=== PATIENT | female | born 1960 | race Native Hawaiian/Other Pacific Islander ===

== ENCOUNTER 2018-01-16 08:34 | Outpatient (CLI) | payer OTHER | END 2018-01-16 19:35 | disposition home or self-care (01) | LOC: RAD 08:34 | DX: M54.89 Other dorsalgia (principal); M54.2 Cervicalgia ==

== ENCOUNTER 2020-03-06 12:36 | Emergency (ER) | payer OTHER ==
[~2020-03-06] VITALS: Ht 162.6 cm; Wt 61.2 kg
[2020-03-06 12:40] VITALS: BP 133/72; TEMP 98.4
== END 2020-03-06 14:42 | disposition home or self-care (01) ==
LOC: ED 12:36
PROC: 2W3JX1Z Immobilization of Right Finger using Splint (ICD-10-PCS; principal; 2020-03-06)
DX: S62.646A Nondisplaced fracture of proximal phalanx of right little finger, initial encounter for closed fracture (principal); W01.0XXA Fall on same level from slipping, tripping and stumbling without subsequent striking against object, initial encounter; Y92.89 Other specified places as the place of occurrence of the external cause
CPT/HCPCS: 99283

== ENCOUNTER 2021-05-03 12:29 | Emergency (ER) | payer OTHER ==
[~2021-05-03] VITALS: Ht 162.6 cm; Wt 57.2 kg
[2021-05-03 13:10] LABS: PLATELET COUNT 256 K/uL (152-353)
[2021-05-03 13:18] LABS: POTASSIUM 4.6 mmol/L (3.6-5.2)
[2021-05-03 15:47] VITALS: BP 120/66; TEMP 98.6
== END 2021-05-03 15:47 | disposition home or self-care (01) ==
LOC: ED 12:29
PROVIDERS: Emergency Medicine
DX: R10.84 Generalized abdominal pain (principal); B96.81 Helicobacter pylori [H. pylori] as the cause of diseases classified elsewhere
CPT/HCPCS: 80053; 82150; 83690; 85027; 96374; 96375; 99284; J1170; J2405; Q9963

== ENCOUNTER 2021-08-21 08:30 | Outpatient (CLI) | payer OTHER | END 2021-08-21 18:51 | disposition home or self-care (01) | LOC: US 08:30 | PROVIDERS: ATTEND Nurse Practitioner Family | DX: R74.8 Abnormal levels of other serum enzymes (principal) ==

== ENCOUNTER 2022-01-28 08:21 | Emergency (ER) | payer OTHER ==
[~2022-01-28] VITALS: Ht 162.6 cm; Wt 57.2 kg
[2022-01-28 09:32] LABS: PLATELET COUNT 184 K/uL (152-353)
[2022-01-28 11:43] VITALS: BP 139/67; TEMP 99
== END 2022-01-28 11:45 | disposition home or self-care (01) ==
LOC: ED 08:21
PROVIDERS: Emergency Medicine Emergency Medical Services
DX: E86.0 Dehydration (principal); M51.37 Other intervertebral disc degeneration, lumbosacral region
CPT/HCPCS: 80053; 80307; 81002; 85027; 96361; 96374; 96375; 99284; J1885; J2405

== ENCOUNTER 2022-08-22 12:19 | Outpatient (CLI) | payer OTHER | END 2022-08-22 17:00 | disposition home or self-care (01) | LOC: LABW 12:19 | PROVIDERS: ATTEND Nurse Practitioner Family | DX: R19.5 Other fecal abnormalities (principal) | CPT/HCPCS: 83630; 83993; 87015; 87045; 87324; 87328; 87329; 87449; 87899 ==

== ENCOUNTER 2022-11-04 09:05 | Outpatient (CLI) | payer OTHER | END 2022-11-04 19:26 | disposition home or self-care (01) | LOC: US 09:05 | PROVIDERS: ATTEND Nurse Practitioner Family | DX: K76.0 Fatty (change of) liver, not elsewhere classified (principal) ==

== ENCOUNTER 2022-12-04 09:54 | Outpatient (CLI) | payer OTHER | END 2022-12-04 19:06 | disposition home or self-care (01) | LOC: CT 09:54 | PROVIDERS: ATTEND Internal Medicine Gastroenterology | DX: R10.84 Generalized abdominal pain (principal) | CPT/HCPCS: 36415; 82565; 84520; Q9963 ==